=== PATIENT | male | born 2000 | race Caucasian/White ===

== ENCOUNTER 2020-05-19 20:39 | Emergency (ER) | payer MEDICAID ==
[2020-05-19] MEDS ORDERED: ACETAMINOPHEN 500 MG TAB (TYLENOL) ONE (21:17)
--- NOTE | 2020-05-19 21:32 | ED Fever ---
History of Present Illness General Chief Complaint: Fever-Adult/Adol Stated Complaint: FEVER, COUGH,DIAHERRA Nursing Triage Note: c/o fever. States that fever was up to 107 at home today. c/o sore throat, cough and hurting all over. States that he had Covid test done at [facility] yesterday but has not received results yet. Took Tylenol 1 GM at 1930 Source: patient Exam Limitations: no limitations History of Present Illness Date Seen by Provider: May 19, 2020 Time Seen by Provider: 21:27 Initial Comments This is a healthy 19-year-old male who presents to the ER for reported fever of 107 on their home thermometer prior to arrival. States yesterday afternoon he began having fever, body aches aches, and sore throat. States he received a COVID test at [facility] yesterday, but has not yet received results. At 1930 this evening. He took ibuprofen 400 mg. When his mother rechecked his temperature and had a reading of 107.0. They presented immediately to the ER for further evaluation. He denies sensitivity to light neck pain, shortness of breath, nausea, vomiting, abdominal pain, difficulty urinating. States he is eating and drinking without issue. Timing/Duration: yesterday Fever Quality: greater than 100.5 F Fever Therapy X [employer]: Ibuprofen Associated Symptoms: No chest pain, No confusion; cough, headache, muscle aches; No nausea/vomiting, No shortness of breath; sore throat; No stiff neck, No weakness; other Allergies and Home Medications Allergies Coded Allergies: No Known Drug Allergies (Unverified , 02/05/15) Home Medications Doxycycline Hyclate 100 Mg Capsule, 100 MG PO BID Prescribed by: ROSA MARCOS on 05/19/20 7980 Patient Home Medication List Home Medication List Reviewed: Yes Review of Systems Review of Systems Constitutional: see HPI EENTM: see HPI Respiratory: see HPI Cardiovascular: no symptoms reported Gastrointestinal: no symptoms reported Genitourinary: no symptoms reported Musculoskeletal: no symptoms reported Skin: no symptoms reported Psychiatric/Neurological: No Symptoms Reported Hematologic/Lymphatic: No Symptoms Reported Immunological/Allergic: no symptoms reported Past Tpyhdcc-Zpwzqc-Jupzag Hx Patient Social History Alcohol Use: Denies Use Recreational Drug Use: Yes Drug of Choice: marijuiana Smoking Status: Former Smoker 2nd Hand Smoke Exposure: No Recent Foreign Travel: No Contact w/Someone Who Travel: No Recent Infectious Disease Expo: No Recent Hopitalizations: No Seasonal Allergies Seasonal Allergies: No Past Medical History Surgeries: No Respiratory: No Pneumonia Cardiac: No Neurological: No Reproductive Disorders: No Sexually Transmitted Disease: No Genitourinary: No Gastrointestinal: No Musculoskeletal: No Endocrine: No HEENT: No Cancer: No Psychosocial: No Integumentary: No Physical Exam Vital Signs - First Documented 05/19/20 05/19/20 21:02 21:13 Temp 39.2 Pulse 115 Resp 20 O2 Delivery Room Air Capillary Refill : Height: 5'4" Weight: 130lbs. oz. [id number]; BMI Method: General Appearance: WD/WN, no apparent distress HEENT: PERRL/EOMI, TMs normal; No photophobia; pharyngeal erythema, tonsillar exudate Neck: non-tender, full range of motion, supple, normal inspection Respiratory: chest non-tender, lungs clear, normal breath sounds, no respiratory distress, no accessory muscle use Cardiovascular: normal peripheral pulses, regular rate, rhythm, no edema, no murmur Gastrointestinal: normal bowel sounds, non tender, soft Extremities: normal range of motion, non-tender, normal inspection, no pedal edema Neurologic/Psychiatric: no motor/sensory deficits, alert, normal mood/affect, oriented x 3 Skin: normal color, warm/dry Progress/Results/Core Measures Suspected Sepsis SIRS Temperature: Pulse: Respiratory Rate: Laboratory Tests 05/19/20 21:40: White Blood Count 17.3H Blood Pressure / Mean: Laboratory Tests 05/19/20 21:40: Creatinine 0.98, Platelet Count 211, Total Bilirubin 2.0H Results/Orders Lab Results Laboratory Tests Test 05/19/20 21:40 05/19/20 22:45 Range/Units White Blood Count 17.3 H 4.3-11.0 10^3/uL Red Blood Count 4.10 L 4.35-5.85 10^6/uL Hemoglobin 14.1 13.3-17.7 G/DL Hematocrit 37 L 40-54 % Mean Corpuscular Volume 90 80-99 FL Mean Corpuscular Hemoglobin 34 25-34 PG Mean Corpuscular Hemoglobin Concent 38 H 32-36 G/DL Red Cell Distribution Width 14.3 10.0-14.5 % Platelet Count 211 130-400 10^3/uL Mean Platelet Volume 10.6 H 7.4-10.4 FL Neutrophils (%) (Auto) 80 H 42-75 % Lymphocytes (%) (Auto) 9 L 12-44 % Monocytes (%) (Auto) 10 0-12 % Eosinophils (%) (Auto) 1 0-10 % Basophils (%) (Auto) 0 0-10 % Neutrophils # (Auto) 13.9 H 1.8-7.8 X 10^3 Lymphocytes # (Auto) 1.5 1.0-4.0 X 10^3 Monocytes # (Auto) 1.8 H 0.0-1.0 X 10^3 Eosinophils # (Auto) 0.1 0.0-0.3 10^3/uL Basophils # (Auto) 0.0 0.0-0.1 10^3/uL Neutrophils % (Manual) 84 % Lymphocytes % (Manual) 7 % Monocytes % (Manual) 4 % Smudge Cells SLIGHT Blood Morphology Comment NORMAL Sodium Level 138 135-145 MMOL/L Potassium Level 3.5 L 3.6-5.0 MMOL/L Chloride Level 106 98-107 MMOL/L Carbon Dioxide Level 20 L 21-32 MMOL/L Anion Gap 12 5-14 MMOL/L Blood Urea Nitrogen 13 7-18 MG/DL Creatinine 0.98 0.60-1.30 MG/DL Estimat Glomerular Filtration Rate > 60 BUN/Creatinine Ratio 13 Glucose Level 111 H 70-105 MG/DL Calcium Level 8.6 8.5-10.1 MG/DL Corrected Calcium 8.5 8.5-10.1 MG/DL Total Bilirubin 2.0 H 0.1-1.0 MG/DL Aspartate Amino Transf (AST/SGOT) 16 5-34 U/L Alanine Aminotransferase (ALT/SGPT) 14 0-55 U/L Alkaline Phosphatase 43 40-136 U/L C-Reactive Protein High Sensitivity 4.69 H 0.00-0.50 MG/DL Total Protein 6.8 6.4-8.2 GM/DL Albumin 4.1 3.2-4.5 GM/DL Group A Streptococcus Screen NEGATIVE NEGATIVE Urine Color YELLOW Urine Clarity CLEAR Urine pH 7.0 5-9 Urine Specific [place] 1.020 1.016-1.022 Urine Protein 1+ H NEGATIVE Urine Glucose (UA) NEGATIVE NEGATIVE Urine Ketones NEGATIVE NEGATIVE Urine Nitrite NEGATIVE NEGATIVE Urine Bilirubin NEGATIVE NEGATIVE Urine Urobilinogen 1.0 < = 1.0 MG/DL Urine Leukocyte Esterase NEGATIVE NEGATIVE Urine RBC (Auto) NEGATIVE NEGATIVE Urine RBC NONE /HPF Urine WBC 0-2 /HPF Urine Squamous Epithelial Cells NONE /HPF Urine Crystals NONE /LPF Urine Bacteria NEGATIVE /HPF Urine Casts NONE /LPF Urine Mucus MODERATE H /LPF Urine Other MOD SPERM H /HPF Urine Culture Indicated NO Micro Results Microbiology 05/19/20 Influenza Types A,B Antigen (ELIZABETH) - Final, Complete My Orders Orders - ROSA MARCOS APRN Acetaminophen Tablet (Tylenol Tablet) (05/19/20 21:45) Cbc With Automated Diff (05/19/20 21:44) Comprehensive Metabolic Panel (05/19/20 21:44) Rapid Strep A Screen (05/19/20 21:44) Influenza A And B Antigens (05/19/20 21:44) Manual Differential (05/19/20 21:40) Ua Culture If Indicated (05/19/20 22:22) Hs C Reactive Protein (05/19/20 22:22) Doxycycline Hyclate Tablet (Vibramycin T (05/19/20 23:30) Doxycycline Hyclate Tablet (Vibramycin T (05/19/20 23:22) Medications Given in ED Current Medications Medications Dose Ordered Sig/Anisa Route Start Time Stop Time Status Last Admin Dose Admin Acetaminophen 1,000 mg ONCE ONCE PO 05/19/20 21:45 05/19/20 21:46 DC 05/19/20 21:40 1,000 MG Vital Signs/I&O 05/19/20 05/19/20 05/19/20 05/19/20 21:02 21:13 21:40 22:39 Temp 39.2 39.2 38.1 Pulse 115 104 Resp 20 20 B/P (MAP) O2 Delivery Room Air Room Air Capillary Refill : Progress Note : Progress Note Prior COVID test pending. Ordered CBC, CMP, strep and influenza swabs. Strep and influenza swabs negative. Elevated WBC noted, added a CRP and UA. at this time. On exam, his lungs were clear and he had negative meningeal signs. Is noted to have slight amount of smudge cells noted on manual diff. He was placed on doxycycline and instructed to follow-up with his primary care provider tomorrow. We discussed symptoms of meningitis such as headache, neck pain, photophobia, nausea, vomiting, and he was instructed to return to the ER if he develops any of these symptoms. Verbalized understanding. Departure Impression Primary Impression: Fever Disposition: 01 HOME, SELF-CARE Condition: Improved Departure-Patient Inst. Decision time for Depature: 22:46 Referrals: BRENDEN ACOSTA MD (PCP/Family) Primary Care Physician Patient Instructions: Fever, Adult (DC) Add. Discharge Instructions: Plan: 1. Discharge home. Drink plain fluids. 2. May take Tylenol or Ibuprofen as needed for fever per package instructions. 3. Follow up with your primary care provider tomorrow. 4. Take antibiotics as directed and complete full course. Avoid sun exposure w hile taking. 5. Return for any new or concerning symptoms. All discharge instructions reviewed with patient and/or family. Voiced understanding. Scripts Doxycycline Hyclate (Doxycycline Hyclate) 100 Mg Capsule 100 MG PO BID for 7 Days, #14 CAP 0 Refills Prov: ROSA MARCOS APRN 05/19/20 Copy Copies To 1: [facility]/ROSA LO APRN May 19, 2020 21:32
[2020-05-19] MEDS ORDERED: ACETAMINOPHEN 500 MG TAB (TYLENOL) PO ONE (21:45)
[2020-05-19 21:53] LABS: BASOPHILS % (AUTO) 0 % (0-10); EOSINOPHILS # (AUTO) 0.1 10^3/uL (0.0-0.3); EOSINOPHILS % (AUTO) 1 % (0-10); HEMATOCRIT 37 % (40-54); HEMOGLOBIN 14.1 G/DL (13.3-17.7); LYMPHOCYTES # (AUTO) 1.5 X 10^3 (1.0-4.0); LYMPHOCYTES % (AUTO) 9 % (12-44); MEAN CORPUSCULAR HEMOGLOBIN 34 PG (25-34); MEAN CORPUSCULAR HGB CONC 38 G/DL (32-36); MEAN CORPUSCULAR VOLUME 90 FL (80-99); MEAN PLATELET VOLUME 10.6 FL (7.4-10.4); MONOCYTES # (AUTO) 1.8 X 10^3 (0.0-1.0); MONOCYTES % (AUTO) 10 % (0-12); NEUTROPHILS # (AUTO) 13.9 X 10^3 (1.8-7.8); NEUTROPHILS % (AUTO) 80 % (42-75); PLATELET COUNT 211 10^3/uL (130-400); WHITE BLOOD COUNT 17.3 10^3/uL (4.3-11.0)
[2020-05-19 22:06] LABS: ALBUMIN 4.1 GM/DL (3.2-4.5); CHLORIDE 106 MMOL/L (98-107); POTASSIUM 3.5 MMOL/L (3.6-5.0); SODIUM 138 MMOL/L (135-145)
[2020-05-19 22:08] LABS: CALCIUM 8.6 MG/DL (8.5-10.1)
[2020-05-19 22:09] LABS: GLUCOSE 111 MG/DL (70-105); TOTAL PROTEIN 6.8 GM/DL (6.4-8.2)
[2020-05-19 22:10] LABS: CARBON DIOXIDE 20 MMOL/L (21-32)
[2020-05-19 22:12] LABS: ALKALINE PHOSPHATASE 43 U/L (40-136); CREATININE SERUM 0.98 MG/DL (0.60-1.30); GFR ESTIMATED > 60
[2020-05-19 22:13] LABS: BUN/CREATININE RATIO 13
[2020-05-19 22:15] LABS: ALANINE AMINOTRANSFERASE 14 U/L (0-55)
[2020-05-19 22:19] LABS: LYMPHOCYTES % (MANUAL) 7 %; MONOCYTES % (MANUAL) 4 %; NEUTROPHILS % (MANUAL) 84 %; RBC MORPH NORMAL; SMUDGE CELLS SLIGHT
[2020-05-19] MEDS ORDERED: DOXY100C2 PO (22:49)
[2020-05-19 22:54] LABS: BILIRUBIN,URINE NEGATIVE (NEGATIVE); CLARITY,URINE CLEAR; COLOR,URINE YELLOW; GLUCOSE, URINE (UA) NEGATIVE (NEGATIVE); KETONES,URINE NEGATIVE (NEGATIVE); LEUKOCYTE ESTERASE ,URINE NEGATIVE (NEGATIVE); NITRITE,URINE NEGATIVE (NEGATIVE); PROTEIN,URINE 1+ (NEGATIVE)
[2020-05-19] MEDS ORDERED: DOXYCYCLINE 100 MG (VIBRAMYCIN) TABLET ONE (23:22)
[2020-05-19] MEDS ORDERED: DOXYCYCLINE 100 MG (VIBRAMYCIN) TABLET PO ONE (23:30)
[2020-05-19 23:31] LABS: BACTERIA,URINE NEGATIVE /HPF; URINE OTHER MOD SPERM /HPF; WBC,URINE 0-2 /HPF
== END 2020-05-19 23:30 | disposition home or self-care (01) ==
LOC: EDUNIT# 20:39 → ER 20:42
DX: R50.9 Fever, unspecified (principal); Z87.891 Personal history of nicotine dependence
CPT/HCPCS: 36415; 80053; 81000; 85007; 85027; 86141; 87430; 87804